=== PATIENT | male | born 1990 | race Caucasian/White ===

== ENCOUNTER 2021-01-08 19:25 | Emergency (ER) | payer MEDICARE, MEDICAID, SELFPAY ==
[2021-01-08 19:32] VITALS: BP 128/80; PULSE 101; RESP 18; TEMP 37; O2SAT 99; BMI 21.9
--- NOTE | 2021-01-08 19:39 | ED.OVERDOSE ---
HPI - Overdose General Chief Complaint: ETOH/Substance Use Stated Complaint: OD Time Seen by Provider: 01/08/21 19:38 Source: patient and EMS Mode of arrival: EMS Limitations: no limitations History of Present Illness HPI Narrative: 30-year-old male who fell asleep after sniffing a bag of cocaine, patient declined use of opiate or heroin, patient stated he was tired and he fell asleep after used cocaine, patient require no Narcan, patient only required chest rub to wake up. Patient emergency department is awake, alert, oriented, patient declined using any other substance no alcohol or heroin. Related Data Allergies Allergy/AdvReac Type Severity Reaction Status Date / Time cat dander [CATS] Allergy Unknown SNEEZING, Unverified 06/19/20 16:00 DIFFICULTY BREATHING Penicillins [PENICILLINS] Allergy Unknown RASH Unverified 06/19/20 16:00 Review of Systems Review of Systems: All other systems are reviewed and are negative Constitutional: Reports as per HPI and Reports no additional constitutional complaints Eyes: Reports as per HPI and Reports no additional eye complaints Reports system reviewed and no additional complaints, except as documented Cardiovascular: Reports as per HPI and Reports no additional cardiovascular complaints Respiratory: Reports as per HPI and Reports no additional respiratory complaints Gastrointestinal: Reports as per HPI and Reports no additional gastrointestinal complaints Genitourinary: Reports no additional female genitourinary complaints Musculoskeletal: Reports no additional musculoskeletal complaints Skin/Breast: Reports system reviewed and no additional complaints, except as docu Psychiatric: Reports no additional psychiatric complaints Endocrine: Reports no additional endocrine complaints Hematologic/Lymphatic: Reports no additional hematologic/lymphatic complaints Allergic/Immunologic: Reports no additional allergic/immunologic complaints Reports system reviewed and no additional complaints, except as documented and Reports Abnormal speech present COUNT INCLUDES THE [facility] Past Medical History Medical History (Updated 01/08/21 @ 19:50 by Jana Arnett) No known health problems Substance abuse Social History Social History Smoking Status: Current every day smoker Use of substances other than those prescribed or required for medical reasons: Yes Substance Use Type: Crack/Cocaine, Marijuana and Prescription Drugs Substance Use Frequency: Chronic Longstanding Last Used Substance: Just Prior to Admission Advance Directives: No Physical Exam Vital Signs: Vital Signs: Last Vital Signs Temp 98.6 F 01/08/21 19:32 Pulse 101 H 01/08/21 19:32 Resp 18 01/08/21 19:32 BP 128/80 01/08/21 19:32 Pulse Ox 99 01/08/21 19:32 Body Mass Index 21.9 Vital signs have been reviewed as appeared to be correct. Blood pressure normal. Heart rate normal. Respiration rate normal. Temperature normal. Oxygen saturation normal. Appearance: Alert. Oriented X3. No acute distress. Head: Normal external exam. Normocephalic. Atraumatic. No Snyder signs noted. No raccoon eyes noted Eyes: PERRLA. EOMI. Conjunctiva and sclera normal. Eyelids normal. ENT: TM's Normal. Pharynx normal. Uvula midline. Moist mucous membranes. No trismus noted. No drooling noted. No muffled voice noted. Neck: Normal inspection. Neck supple. FROM. No adenopathy. Thyroid Normal. No meningeal signs. No neck mass noted. CVS: Normal heart rate and rhythm. Heart sound normal. No murmurs noted. Pulses normal throughout. Respiratory: No respiratory distress. Painless inspiration. Breath sounds normal. No wheezes/rales/rhonchi noted. Chest nontender. No accessory muscle usage noted or decreased air movement noted. Abdomen: Soft and nontender. Bowel sounds normal in all 4 quadrants. No distention noted. No organomegaly noted. No visible injury noted. Back: No CVA tenderness. Full range of motion noted. Skin: Skin warm and dry. Normal skin color. Normal skin turgor. No rashes/lesions/lacerations noted. Extremities: No lower extremity edema. Extremities exhibit normal range of motion. Extremities nontender. Neuro: Oriented X 3. No motor deficit. No sensory deficit. Reflexes normal. Course Course Course Narrative: 30-year-old male came in after using heroin. Patient remain emergency department for over an hour patient remained awake with stable vital signs. Patient is awake and stable enough to be discharged home now. Discharge Plan Discharge Clinical Impression: Polysubstance abuse Patient Disposition: Home, Self-Care Instructions: Polysubstance Abuse (ED) Additional Instructions: Follow-up with your primary doctor.
--- NOTE | 2021-01-08 20:42 | MHC.RECOVSUP ---
Reason for consult o Current location: ETOH/Substance use o Identified substance use concern: methadone/ETOH - Overdose <del>-</del> <del>Withdrawal</del> <del>-</del> <del>Seeking</del> <del>ATS</del> <del>(detox)</del> - Support ? Intervention: <del>o</del> <del>ATS</del> <del>bed</del> <del>search</del> <del>started/completed/in</del> <del>process</del> <del>o</del> <del>MAT</del> <del>started</del> <del>or</del> <del>to</del> <del>be</del> <del>started</del> <del>o</del> <del>Community</del> <del>resources</del> <del>provided</del> o Harm reduction discussion ? Plan: <del>o</del> <del>Referral</del> <del>to</del> <del>[facility]</del> <del>o</del> <del>Bed</del> <del>search</del> <del>in</del> <del>progress</del> <del>to</del> <del>o</del> <del>Follow</del> <del>up</del> <del>tomorrow</del> <del>o</del> <del>Patient</del> <del>awaiting</del> <del>crisis</del> <del>evaluation</del> o Patient to follow up with [facility] after discharge ? Additional information: pt just requested that he wants sleep. attempted to talk with client twice but couldn't gather information
== END 2021-01-08 23:11 | disposition home or self-care (01) ==
LOC: HO.ED 20:23
PROVIDERS: Emergency Provider Emergency Medicine
DX: F19.10 Other psychoactive substance abuse, uncomplicated (principal); F17.200 Nicotine dependence, unspecified, uncomplicated; F12.90 Cannabis use, unspecified, uncomplicated
CPT/HCPCS: 99284

== ENCOUNTER 2024-04-21 06:47 | Emergency (ER) | payer MEDICARE, MEDICAID, SELFPAY ==
--- NOTE | 2024-04-21 | ECG_ITS ---
Test Reason : SOB Blood Pressure : / mmHG Vent. Rate : 092 BPM Atrial Rate : 092 BPM P-R Int : 138 ms QRS Dur : 068 ms QT Int : 532 ms P-R-T Axes : 007 022 006 degrees QTc Int : 657 ms Sinus rhythm with Premature supraventricular complexes and with frequent Premature ventricular complexes Nonspecific ST abnormality Prolonged QT Abnormal ECG No previous ECGs available Referred By: Generic ED Physician Electronically Signed By:TL FARLEY MD
[2024-04-21 07:12] VITALS: BP 121/82; BP 142/55; PULSE 104; PULSE 93; RESP 12; TEMP 36.4; O2SAT 100; O2SAT 98; BMI 20.8
--- NOTE | 2024-04-21 07:14 | ED.SOB ---
HPI - SOB/Dyspnea General Chief Complaint: General Medical Stated Complaint: SOB/WEAKNESS/NAUSEA VOMITING Time Seen by Provider: 04/21/24 07:07 Source: patient and EMS Mode of arrival: EMS Limitations: no limitations History of Present Illness ED Provider: DR. Wilson HPI Narrative: 34-year-old male with known history of polysubstance abuse patient currently admitted to only drinking beer daily, daily smoking marijuana, and taking his prescribed methadone, patient trying to cut down on alcohol drinking by cold turkey started to have epigastric pain yesterday followed by nausea and vomiting stated that the abdominal pain has resolved today. Patient also is complaining of 2 days of shortness of breath, coughing with clear phlegm, no sick contacts, no recent travel, no lower extremity swelling or tenderness, no CP, no history of pulmonary embolism. Patient now complains of no CP, no abdominal pain. Patient feels dehydrated. Related Data Previous Rx's ?Medication ?Instructions ?Recorded albuterol sulfate 90 mcg/actuation 1 inh inhalation QID PRN shortness 04/21/24 aerosol inhaler of breath or wheezing #8.5 grams omeprazole 40 mg capsule,delayed 40 mg PO DAILY #14 caps 04/21/24 release prednisone 20 mg tablet 20 mg PO BID #10 tabs 04/21/24 Allergies Allergy/AdvReac Type Severity Reaction Status Date / Time cat dander [CATS] Allergy Unknown SNEEZING, Verified 04/21/24 07:14 DIFFICULTY BREATHING Penicillins [PENICILLINS] Allergy Unknown RASH Verified 04/21/24 07:14 Review of Systems Review of Systems: All other systems are reviewed and are negative Constitutional: Reports as per HPI and Reports no additional constitutional complaints Eyes: Reports as per HPI and Reports no additional eye complaints Reports system reviewed and no additional complaints, except as documented Cardiovascular: Reports as per HPI and Reports no additional cardiovascular complaints Respiratory: Reports as per HPI and Reports no additional respiratory complaints Gastrointestinal: Reports as per HPI and Reports no additional gastrointestinal complaints Genitourinary: Reports no additional female genitourinary complaints Musculoskeletal: Reports no additional musculoskeletal complaints Skin/Breast: Reports system reviewed and no additional complaints, except as docu Psychiatric: Reports no additional psychiatric complaints Endocrine: Reports no additional endocrine complaints Hematologic/Lymphatic: Reports no additional hematologic/lymphatic complaints Allergic/Immunologic: Reports no additional allergic/immunologic complaints Reports system reviewed and no additional complaints, except as documented and Reports Abnormal speech present PMFSH Past Medical History Medical History Substance abuse No known health problems Social History Social History Alcohol intake: current Alcohol intake frequency: 0-2 drinks per day Alcohol type: beer Smoked in Last 30 Days: No Use of substances other than those prescribed or required for medical reasons: Yes Substance Use Type: Other Substance Use Type Other:: methadone Advance Directives: No Advance Directives Information Provided: No Do you have a plan to hurt others: No Plan Physical Exam Vital Signs: Vital Signs: Last Vital Signs Temp 98.1 F 04/21/24 10:58 Pulse 89 04/21/24 10:58 Resp 14 04/21/24 10:58 BP 114/73 04/21/24 10:58 Pulse Ox 95 04/21/24 10:58 O2 Del Method Room Air 04/21/24 10:58 BMI result Body Mass Index 20.8 Vital signs have been reviewed and appear to be correct. Blood pressure elevated. Heart rate normal. Respiratory rate normal. Temperature normal. Oxygen saturation normal. Appearance: Alert. Oriented X3. No acute distress. Head: Normal external exam. Normocephalic. Atraumatic. No Snyder signs noted. No raccoon eyes noted Eyes: PERRLA. EOMI. Conjunctiva and sclera normal. Eyelids normal. ENT: TM's Normal. Pharynx normal. Uvula midline. Moist mucous membranes. No trismus noted. No drooling noted. No muffled voice noted. Neck: Normal inspection. Neck supple. FROM. No adenopathy. Thyroid Normal. No meningeal signs. No neck mass noted. CVS: Normal heart rate and rhythm. Heart sound normal. No murmurs noted. Pulses normal throughout. Respiratory: No respiratory distress. Painless inspiration. Diffuse expiratory wheezing with prolonged expiration, decreased breathing sounds bilaterally. Abdomen: Soft and nontender. Bowel sounds normal in all 4 quadrants. No distention noted. No organomegaly noted. No visible injury noted. Back: No CVA tenderness. Full range of motion noted. Skin: Skin warm and dry. Normal skin color. Normal skin turgor. No rashes/lesions/lacerations noted. Extremities: No lower extremity edema. Extremities exhibit normal range of motion. Extremities nontender. Neuro: Oriented X 3. Cranial nerve exam: II-XII are grossly intact No motor deficit. No sensory deficit. Reflexes normal. Course Reevaluation(s) Reevaluation #1: 34-year-old male came in after having multiple vomiting after drinking beer and smoking marijuana. 1. Shortness of breath improved with bronchodilator, O2 sat and respiratory rate, no risk for pulmonary embolism with negative D-dimer. Will discharge the patient on albuterol and short course of prednisone. 2. Hypokalemia that was repleted in ED and repeat potassium is within normal. 3. Dehydration due to vomiting patient received 2 L of IV fluids in the emergency department and already feels better. 4. EKG showed prolongation of QT( patient is on methadone). Magnesium is normal and repeat K is normal , no addiction medicine consultation available on the week and, the case was discussed with Lauren Yanez who advised to recommend have of the dose of methadone and follow-up with the clinic tomorrow. patient Understood my instructions and will work with the methadone clinic to taper the methadone. Time: 11:12 Medications Administered Discontinued Medications Generic Name Dose Route Start Last Admin Trade Name Freq PRN Reason Stop Dose Admin Al Hydroxide/Mg Hydroxide 30 ml 04/21/24 07:14 04/21/24 07:36 Magnesium Hydrox/Alum Hydrox 30 Ml Oral.Susp PO 04/21/24 07:15 30 ml ONCE ONE Administration Albuterol/Ipratropium 3 ml 04/21/24 07:26 04/21/24 07:33 Albuterol/Iprat 2.5/0.5mg 3 Ml Ampul.Neb INHALE 04/21/24 07:27 3 ml ONCE ONE Administration Famotidine 20 mg 04/21/24 07:14 04/21/24 07:36 Famotidine/Pf 20 Mg/2 Ml Vial IVPUSH 04/21/24 07:15 20 mg ONCE ONE Administration Sodium Chloride 1,000 mls @ 999 mls/hr 04/21/24 07:14 04/21/24 09:20 Ns IV 04/21/24 08:14 Infused .Q1H1M ONE Infusion Potassium Chloride 10 meq in 100 mls @ 100 mls/hr 04/21/24 08:19 04/21/24 10:26 Potassium Chloride/H20 IV 04/21/24 09:18 Infused ONCE ONE Infusion Sodium Chloride 1,000 mls @ 999 mls/hr 04/21/24 08:30 04/21/24 10:34 Ns IVCONT 04/21/24 10:30 Infused .Q1H1M MANE Infusion Methylprednisolone Sodium Succinate 125 mg 04/21/24 07:16 04/21/24 07:35 Methylprednisolone Sod Succ 125 Mg/2 Ml Vial IVPUSH 04/21/24 07:17 125 mg ONCE ONE Administration Ondansetron HCl 4 mg 04/21/24 07:14 04/21/24 07:35 Ondansetron Hcl 4 Mg/2 Ml Vial IVPUSH 04/21/24 07:15 4 mg ONCE ONE Administration Potassium Chloride 40 meq 04/21/24 08:19 04/21/24 09:11 Potassium Chloride Packet 20 Meq Packet PO 04/21/24 08:20 40 meq ONCE ONE Administration Medical Decision Making Differential Diagnosis Differential Diagnoses: The differential diagnosis associated with the presentation includes ( Asthma exacerbation, acute bronchitis, pulmonary embolism, ACS, alcoholic gastritis, dehydration, electrolyte derangement, dehydration, PEPE , upper respiratory viral infection.) Admission/Observation Consideration of admission/observation: Escalation of care including admission/observation considered Lab Data MDM Lab Attestation statement: I reviewed the patient's lab results. 04/21/24 07:07 04/21/24 10:32 Labs: Lab Results 04/21/24 04/21/24 04/21/24 Range/Units 07:07 07:34 10:32 WBC 8.1 (4.8-10.8) X10*3/uL RBC 3.30 L (4.60-5.80) X10*6/uL Hgb 11.2 L (14.0-18.0) g/dl Hct 33.5 L (42.0-52.0) % MCV 101.5 H (80.0-98.0) fL MCH 33.9 H (27.0-33.0) pg MCHC 33.4 (31.0-36.0) g/dl RDW 11.6 (11.0-16.0) % Plt Count 208 (160-400) X10*3/uL MPV 11.0 (9.4-12.4) fL Immature Gran % (Auto) 0.5 H (0.0-0.4) % Neut % (Auto) 64.5 (45-73) % Lymph % (Auto) 24.1 (20-40) % [place] % (Auto) 9.7 (2-11) % Eos % (Auto) 0.7 (0-4) % Baso % (Auto) 0.5 (0-2) % Lymph # (Auto) 2.0 (1.2-4.9) X10*3/uL [place] # (Auto) 0.8 (0.1-1.2) X10*3/uL Eos # (Auto) 0.1 (0.0-0.4) X10*3/uL Baso # (Auto) 0.0 (0.0-0.2) X10*3/uL Abs Immat Gran (auto) 0.04 H (0.00-0.03) X10*3/uL Absolute Neuts (auto) 5.2 (2.0-8.3) x10*3/uL Absolute Nucleated RBC 0.000 (0.0-0.012) X10*3/uL Nucleated RBC % (auto) 0.0 (0.0-0.2) /100WBC D-Dimer High Sensitivty < 150 NG/ML Sodium 131 L 139 (135-145) mmol/L Potassium 3.2 L 4.8 D (3.3-5.1) mmol/L Chloride 91 L 106 (96-108) mmol/L Carbon Dioxide 27 25 (22-29) mmol/L Anion Gap 16 13 (12-20) BUN 4 L 4 L (9-16) mg/dL Creatinine 0.96 0.87 (0.5-1.4) mg/dL Estim Creat Clear Calc 89.8 99.1 Estimated GFR > 60 > 60 Random Glucose 93 108 (60-115) mg/dL Calcium 9.4 8.5 D (8.4-10.2) mg/dL Magnesium 1.7 (1.6-2.6) mg/dL Total Bilirubin 1.3 H (0.0-1.0) mg/dL AST 36 (5-37) U/L ALT 45 H (0-40) U/L Alkaline Phosphatase 123 H (39-117) U/L Troponin I High Sens < 2.7 < 2.7 (<3.5-35.0) ng/L Total Protein 7.0 (6.5-8.0) g/dL Albumin 4.1 (3.5-5.0) g/dL Influenza Type A (PCR) NEGATIVE (Negative) Influenza Type B (PCR) NEGATIVE (Negative) RSV RNA Qual (PCR) NEGATIVE (Negative) SARS-CoV-2 RNA (RT-PCR) NEGATIVE (Negative) Discharge Plan Discharge Clinical Impression: Acute hypokalemia, Acute dehydration, Alcoholic gastritis, Prolonged Q-T interval on ECG, Acute bronchitis Patient Disposition: Home, Self-Care Instructions: Gastritis (ED), Dehydration (ED), Acute Bronchitis (ED) Additional Instructions: we found abnormalities on your EKG likely to be secondary to using a methadone, follow-up with your methadone clinic and let them know, I recommend to start on half of the dose that you take currently (60 mg instead of 120 mg ). Prescriptions: New prednisone 20 mg tablet 20 mg PO BID Qty: 10 0RF albuterol sulfate 90 mcg/actuation HFA aerosol inhaler 1 inh inhalation QID PRN (Reason: shortness of breath or wheezing) Qty: 8.5 0RF omeprazole 40 mg capsule,delayed release(DR/EC) 40 mg PO DAILY Qty: 14 0RF Referrals: [facility] [Primary Care Provider] - Print Language: Occitan
[2024-04-21 07:15] LABS: Basophils Percent Auto 0.5 % (0-2); Eosinophils Absolute Auto 0.1 X10*3/uL (0.0-0.4); Eosinophils Percent Auto 0.7 % (0-4); Hematocrit 33.5 % (42.0-52.0); Imm Gran Abs Auto 0.04 X10*3/uL (0.00-0.03); Imm Gran Pct Auto 0.5 % (0.0-0.4); Lymphocytes Percent Auto 24.1 % (20-40); Mean Corpuscular Volume 101.5 fL (80.0-98.0); Monocytes Absolute Auto 0.8 X10*3/uL (0.1-1.2); Monocytes Percent Auto 9.7 % (2-11); Neutrophils Absolute Auto 5.2 x10*3/uL (2.0-8.3); Neutrophils Percent Auto 64.5 % (45-73); Platelet Count 208 X10*3/uL (160-400); Red Cell Distribution Width 11.6 % (11.0-16.0); White Blood Count 8.1 X10*3/uL (4.8-10.8)
--- NOTE | 2024-04-21 07:17 | PC.NURSE ---
patient arrives from EMS from home with cc of shortness of breath and nausea and vomiting for the last 2 days, patient states he was throwing up all day yesterday, states he has a hx of asthma and this is what it felt like the last time he had an asthma attack. patient saturating well on Room Air, O2 saturation 98-100%, respirations even and unlabored, patient speaking in clear and complete sentences. patient lung sounds clear to auscultation bilaterally. patient placed on monitor tech, Sinus rhythm with PVCs noted. MD at bedside to Evaluate, patient Vital signs stable, EKG completed by this RN, blood work obtained. PIV placed by EMS. nasal swab completed
[2024-04-21 07:33] LABS: Alanine Aminotransferase 45 U/L (0-40); Albumin Level 4.1 g/dL (3.5-5.0); Alkaline Phosphatase 123 U/L (39-117); Anion Gap 16 (12-20); Aspartate Amino Transferase 36 U/L (5-37); Bilirubin Total 1.3 mg/dL (0.0-1.0); Blood Urea Nitrogen 4 mg/dL (9-16); Calcium 9.4 mg/dL (8.4-10.2); Carbon Dioxide 27 mmol/L (22-29); Chloride 91 mmol/L (96-108); Creatinine Clr Calc Pharmacy 89.8; Estimated Glomerular Filt Rate > 60; Glucose Random 93 mg/dL (60-115); Magnesium 1.7 mg/dL (1.6-2.6); Potassium 3.2 mmol/L (3.3-5.1); Sodium 131 mmol/L (135-145)
[2024-04-21] MEDS: Albuterol/Iprat 2.5/0.5MG 3 ML AMPUL.NEB INHALE (07:33)
[2024-04-21 07:34] VITALS: PULSE 101; RESP 14; O2SAT 97
[2024-04-21 07:35] VITALS: BP 121/87; PULSE 98; RESP 12; O2SAT 98
[2024-04-21] MEDS: methylPREDNISolone Sod Succ 125 MG/2 ML VIAL IVPUSH (07:35)
[2024-04-21] MEDS: ondansetron HCL 4 MG/2 ML VIAL IVPUSH (07:35)
[2024-04-21] MEDS: Famotidine/PF 20 MG/2 ML VIAL IVPUSH (07:36)
[2024-04-21] MEDS: Magnesium Hydrox/Alum Hydrox 30 ML ORAL.SUSP PO (07:36)
[2024-04-21] MEDS: 0.9 % Sodium Chloride 1,000 ML 999 ML IV (07:37)
[2024-04-21 07:41] LABS: Troponin-I High Sensitivity < 2.7 ng/L (<3.5-35.0)
[2024-04-21 07:43] LABS: Hemoglobin 11.2 g/dl (14.0-18.0)
--- NOTE | 2024-04-21 07:43 | PC.NURSE ---
patient medicated per going by respiratory. offering no complaints at this time
[2024-04-21 07:44] LABS: Mean Corpuscular HGB Conc 33.4 g/dl (31.0-36.0); Mean Corpuscular Hemoglobin 33.9 pg (27.0-33.0)
[2024-04-21 07:55] LABS: Influenza A PCR NEGATIVE (Negative); Influenza B PCR NEGATIVE (Negative); Resp Syncy Virus RNA Qual PCR NEGATIVE (Negative); SARS COV2 PCR INHOUSE NEGATIVE (Negative)
[2024-04-21 08:02] LABS: D Dimer High Sensitivity < 150 NG/ML
[2024-04-21] MEDS: Potassium Chloride Packet 20 MEQ PACKET 40 MEQ PO (09:11)
[2024-04-21] MEDS: Potassium Chloride/H20 10 MEQ/100 ML PIGGYBACK 100 MEQ IV (09:13)
[2024-04-21] MEDS: 0.9 % Sodium Chloride 1,000 ML 999 ML IVCONT ×2 (09:14→09:25)
--- NOTE | 2024-04-21 09:36 | ECG_ITS ---
Test Reason : ABNORMAL QTC Blood Pressure : / mmHG Vent. Rate : 087 BPM Atrial Rate : 087 BPM P-R Int : 128 ms QRS Dur : 070 ms QT Int : 504 ms P-R-T Axes : 032 039 039 degrees QTc Int : 606 ms Normal sinus rhythm Septal infarct , age undetermined Abnormal ECG When compared with ECG of 21-APR-2024 06:59, Premature ventricular complexes are no longer Present Premature supraventricular complexes are no longer Present T wave inversion now evident in Anterior leads QT has shortened Referred By: Edgardo Wilson Electronically Signed By:TL FARLEY MD
[2024-04-21 10:58] VITALS: BP 114/73; PULSE 89; RESP 14; TEMP 36.7; O2SAT 95
[2024-04-21 11:03] LABS: Anion Gap 13 (12-20); Blood Urea Nitrogen 4 mg/dL (9-16); Calcium 8.5 mg/dL (8.4-10.2); Carbon Dioxide 25 mmol/L (22-29); Chloride 106 mmol/L (96-108); Creatinine Clr Calc Pharmacy 99.1; Estimated Glomerular Filt Rate > 60; Glucose Random 108 mg/dL (60-115); Potassium 4.8 mmol/L (3.3-5.1); Sodium 139 mmol/L (135-145)
--- NOTE | 2024-04-21 11:12 | MHC.EDTECH ---
Per KRYSTAL Sharma, EKG ordered not to be performed until 1200.
[2024-04-21 11:40] LABS: Troponin-I High Sensitivity < 2.7 ng/L (<3.5-35.0)
--- NOTE | 2024-04-21 12:00 | ECG_ITS ---
Test Reason : SOB Blood Pressure : / mmHG Vent. Rate : 071 BPM Atrial Rate : 071 BPM P-R Int : 134 ms QRS Dur : 066 ms QT Int : 606 ms P-R-T Axes : 033 038 017 degrees QTc Int : 658 ms Normal sinus rhythm Nonspecific ST and T wave abnormality Abnormal ECG When compared with ECG of 21-APR-2024 09:47, Nonspecific T wave abnormality has replaced inverted T waves in Anterior leads QT has lengthened Referred By: Edgardo Wilson Electronically Signed By:TL FARLEY MD
[2024-04-21 13:00] VITALS: BP 110/76; PULSE 80; RESP 16; TEMP 36.7; O2SAT 98
[2024-04-21 13:06] VITALS: BP 110/76; PULSE 80; RESP 16; TEMP 36.7; O2SAT 98
== END 2024-04-21 13:07 | disposition home or self-care (01) ==
PROVIDERS: Emergency Provider Emergency Medicine
DX: E87.6 Hypokalemia (principal); E86.0 Dehydration; K29.20 Alcoholic gastritis without bleeding; J20.9 Acute bronchitis, unspecified; R94.31 Abnormal electrocardiogram [ECG] [EKG]; R06.02 Shortness of breath; R05.9 Cough, unspecified; Z03.818 Encounter for observation for suspected exposure to other biological agents ruled out; R10.13 Epigastric pain; F19.10 Other psychoactive substance abuse, uncomplicated; F12.90 Cannabis use, unspecified, uncomplicated; F11.20 Opioid dependence, uncomplicated
CPT/HCPCS: 0241U; 36415; 80048; 80053; 83735; 84484; 85025; 85379; 93005; 94640; 96361; 96365; 96375; 99285; J2405; J2919; J3480

== ENCOUNTER → 2024-04-21 06:59 | Outpatient (BNV) | payer MEDICARE, MEDICAID, SELFPAY | PROVIDERS: Emergency Provider Emergency Medicine; Visit Provider Internal Medicine Cardiovascular Disease | DX: R94.31 Abnormal electrocardiogram [ECG] [EKG] (principal) | CPT/HCPCS: 93010 ==

== ENCOUNTER 2024-05-21 22:22 | Emergency (ER) | payer MEDICARE, MEDICAID, SELFPAY ==
[2024-05-21 23:00] VITALS: BP 125/93; PULSE 82; RESP 16; TEMP 36.3; O2SAT 99; BMI 23.8
[2024-05-21] MEDS: Ondansetron ODT 4 MG TAB.RAPDIS TRANSLINGU (23:18)
== END 2024-05-22 02:59 | disposition left against medical advice (07) ==
PROVIDERS: Emergency Provider Emergency Medicine
DX: R53.1 Weakness (principal)
CPT/HCPCS: 99281

== ENCOUNTER 2024-11-15 08:37 | Emergency (ER) | payer MEDICARE, MEDICAID, SELFPAY ==
[2024-11-15 08:54] VITALS: BP 120/76; PULSE 93; RESP 18; TEMP 36.7; O2SAT 98; BMI 21.4
--- NOTE | 2024-11-15 10:02 | PC.NURSE ---
Methadone verification form faxed to pharmacy.
--- NOTE | 2024-11-15 11:28 | ED.GENADULT ---
HPI - General Adult General Chief complaint: General Medical Stated complaint: Methadone dose Time Seen by Provider: 11/15/24 11:27 Source: patient, RN notes reviewed and old records reviewed Mode of arrival: ambulatory Limitations: no limitations History of Present Illness ED Provider: Abdirahman [facility] narrative: Patient is a 34-year-old male presenting to the ED requesting his methadone dose of 120mg. States he typically gets take home bottles, however, [facility] clinic closed today due to inclement weather. Denies any other complaints. MD complaint: methadone dependence Treatments prior to arrival: none Related Data Home Medications ?Medication ?Instructions ?Recorded ?Confirmed methadone 10 mg/mL oral concentrate 120 mg PO DAILY 11/15/24 11/15/24 Previous Rx's ?Medication ?Instructions ?Recorded albuterol sulfate 90 mcg/actuation 1 inh inhalation QID PRN shortness 04/21/24 aerosol inhaler of breath or wheezing #8.5 grams omeprazole 40 mg capsule,delayed 40 mg PO DAILY #14 caps 04/21/24 release prednisone 20 mg tablet 20 mg PO BID #10 tabs 04/21/24 Allergies Allergy/AdvReac Type Severity Reaction Status Date / Time cat dander [CATS] Allergy Unknown SNEEZING, Verified 11/15/24 08:57 DIFFICULTY BREATHING Penicillins [PENICILLINS] Allergy Unknown RASH Verified 11/15/24 08:57 Review of Systems Review of Systems: As per HPI Yes all other systems are reviewed and are negative Constitutional: Constitutional: Reports as per HPI [facility] Past Medical History Medical History Substance abuse No known health problems Social History Social History Alcohol intake: current Alcohol intake frequency: 0-2 drinks per day Alcohol type: beer Substance Use Type: Other Advance Directives: No Advance Directives Information Provided: No Do you have a plan to hurt others: No Plan Physical Exam ED Vital Signs: Vital Signs - 24 hr 11/15/24 08:54 Temperature 98.1 F Pulse Rate 93 Respiratory Rate 18 Blood Pressure 120/76 Pulse Oximetry 98 Oxygen Delivery Method Room Air BMI result Body Mass Index 21.4 Vital signs have been reviewed and appear to be correct. Blood pressure normal. Heart rate normal. Respiratory rate normal. Temperature normal. Oxygen saturation normal. Const General: cooperative, healthy appearing and no acute distress Orientation/consciousness: oriented to person, oriented to place, oriented to time and patient oriented x3 Limitations: no limitations HENMT Head: Yes normocephalic and Yes atraumatic Ears: external ears normal General nose exam: Normal external nose present Face and sinus: Yes face symmetric Mouth: oropharynx normal and moist mucous membranes Throat: Yes uvula midline Eyes Pupils: Equal, round and reactive pupils present Neck Neck: Yes normal visual inspection and Yes supple Resp Effort & Inspection: normal respiratory effort and able to speak in complete sentences Auscultation: clear to auscultation bilaterally Cardio Rate: regular rate Rhythm: regular rhythm Heart sounds: S1 normal heart sound present and S2 normal heart sound present GI Palpation (GI): Soft to palpation and nontender Auscultation: normoactive bowel sounds General: Yes no CVA tenderness Back/Spine/Pelvis Back: no CVA tenderness Skin General skin exam: elasticity normal and turgor normal Neuro General: oriented to person, oriented to place, oriented to time, patient oriented x3, moves all extremities, no focal motor deficits and CN's II-XI intact bilaterally Cranial nerves: Yes Equal, round and reactive pupils present Cognition (Neuro): normal cognition Extrem General: Yes full ROM, Yes no pedal edema and Yes no calf tenderness Psych Mental Status: mental status grossly normal Affect: normal affect Thought process: Normal thought process present Medications Administered Discontinued Medications Generic Name Dose Route Start Last Admin Trade Name Freq PRN Reason Stop Dose Admin Methadone HCl 120 mg 11/15/24 11:14 11/15/24 12:09 Methadone Hcl 20 Mg/2 Ml Oral.Conc PO 11/15/24 11:15 120 mg ONCE ONE Administration Medical Decision Making Medical Decision Making [facility] Narrative: Patient is a 34-year-old male presenting to the ED requesting his methadone dose of 120mg. On exam patient is awake, A+Ox3, VS WNL, afebrile, normal neurological exam without focal deficits, physical exam findings as above. Given reported symptoms and physical exam findings, initial differential includes but is not limited to methadone dependence. Dose verified with clinic by RN, patient medicated in the ED and provided with last dose letter. Return precautions discussed. Patient verbalized understanding of and agreement with plan. Differential Diagnosis Differential Diagnoses: The differential diagnosis associated with the presentation includes As per MDM External Record Review External record reviewed: Inpatient record, Office record, Outpatient record and Other Discharge Plan Discharge Clinical Impression: Methadone dependence Patient Disposition: Home, Self-Care Additional Instructions: Opiate use disorder You were seen in our Emergency Department today for treatment of opiate use disorder. You may have been dosed with medication for opiate use disorder (MOUD) in the form of suboxone or methadone. You may experience feeling some withdrawal symptoms and this is normal. The? dose in the Emergency Department is a starting dose and meant to be titrated up once you follow up with a clinic. Please do not feel discouraged, it is a process. The nurse has reviewed with you where to follow up and what information to bring with you, to continue treatment. You also may have been given naloxone (narcan) to take home with you. This medication is used to potentially treat opiate overdose. If you decide you want to stop or cut down on how much you?re using, you can call or walk into our outpatient Addiction Treatment office: [facility] (M-F 9am-5p) [address] [place] [address], [address] [phone] You may have been provided with safer injection?items, please take time to take care of YOU and your health. Use new supplies whenever possible to lessen the chances of infections and other illnesses.? ?If you need more supplies, please go [facility],? [address] [place] [address] OR you can call or text to coordinate delivery of safer supplies. You were also provided a list of several treatment providers in the area.? If you experience any worsening symptoms you cannot control please return to the ED or call 911. Please follow up at your next appointment. Things to look out for are fevers, chest pain, shortness of breath, severe pain, dizziness, fainting or any other concerns. Prescriptions: No Action prednisone 20 mg tablet 20 mg PO BID Qty: 10 0RF albuterol sulfate 90 mcg/actuation HFA aerosol inhaler 1 inh inhalation QID PRN (Reason: shortness of breath or wheezing) Qty: 8.5 0RF omeprazole 40 mg capsule,delayed release(DR/EC) 40 mg PO DAILY Qty: 14 0RF methadone 10 mg/mL Concentrate 120 mg PO DAILY Print Language: Niuean
--- NOTE | 2024-11-15 11:31 | HE.PHANOTE ---
METHADONE Dose: 120mg, last dosed 11/01/24 with 13 take home bottles - should last to 11/14/24, per K[facility] at [facility], [place]nam[facility].
[2024-11-15] MEDS: methADONE HCl 20 MG/2 ML ORAL.CONC 120 MG PO (12:09)
[2024-11-15 12:25] VITALS: BP 120/76; PULSE 93; RESP 18; TEMP 36.7; O2SAT 98
--- OUTSIDE RECORDS SUMMARY | 2024-11-15 12:28 | XMS_ITS | Clinical Summary ---
Author Organization [employer] Address [address] [place] [address] Care Team Providers [employer] Worker Name Role Phone Unavailable Primary Care Provider Unavailabl e Active Problems Problem Noted Date Diagnosed Date Abnormal findings on diagnostic imaging of lung 06/01/2021 Mild intermittent asthma 06/01/2021 Opioid abuse 06/01/2021 Posttraumatic stress disorder 06/01/2021 Social History Tobacco Use Types Packs/Day Years Used Date Smoking Tobacco: Never Assessed Sex and Gender Information Value Date Recorded Sex Assigned at Male 08/02/2022 10:15 AM EDT Legal Sex Male 10:15 AM EDT Gender Identity Male 08/02/2022 10:15 AM EDT Sexual Orientation Straight 08/02/2022 10 :15 AM EDT Last Filed Vital Signs Vital Sign Reading Time Taken Comments Blood Pressure 100/60 06/01/2021 12:08 AM EDT Pulse 72 06/01/2021 12:08 AM EDT Temperature - - Respiratory Rate - - Oxygen Saturation - - Inhaled Oxygen Concentration - - Weight 56.7 kg (125 lb) 06/01/2021 12:08 AM EDT Height 162.6 cm (5' 4 ) 06/01/2021 12:08 AM EDT Body Mass Index 21.46 06/01/2021 12:08 AM EDT Plan of Treatment Health Maintenance Due Date Last Done Comments Depression Screening 1990 HIV Screening 1990 SDOH Screening 1990 Alcohol/Substance Use Screening 2002 Tobacco Screening 2002 Family Planning (PISQ) 2005 Hepatitis C Screening 2008 DTaP/Tdap/Td Vaccines (1 - Tdap) 2009 Hepatitis A Vaccines (1 of 2 - Risk 2-dose series) 2009 Hepatitis B Vaccines (1 of 3 - 19+ 3-dose series) 2009 Pneumococcal Vaccine: Pediat rics (0 to 5 Years) and At-Risk Patients (6 to 49) Years) (1 of 2 - PCV) 2009 COVID-19 Vaccine ( - 2023-2 5 season) 2024 Influenza Vaccine (#1) 2024 Zoster Vaccines (1 of 2) 2040 RSV Patients and Pa tients Aged 60 years or older (1 - 1-dose 75+ series) 2065 HIB Vaccines Aged Out No longer eligi ble based on patient's age to complete this topic HPV Vaccines Aged Out No longer eligi ble based on patient's age to complete this topic IPV Vaccines Aged Out No longer eligi ble based on patient's age to complete this topic Meningococcal Vaccine Aged Out No yolanda jodee eligible based on patient's age to complete this topic RSV under 20 months Aged Out No longe r eligible based on patient's age to complete this topic Rotavirus Vaccines Aged Out No longer eligible based on patient's age to complete this topic [place] [address] [place] [address] STANDARD
== END 2024-11-15 12:26 | disposition home or self-care (01) ==
PROVIDERS: Emergency Provider Emergency Medicine Emergency Medical Services
DX: F11.20 Opioid dependence, uncomplicated (principal); Z79.899 Other long term (current) drug therapy
CPT/HCPCS: 99282; 99283

== ENCOUNTER 2025-04-20 04:05 | Emergency (ER) | payer MEDICARE, MEDICAID, SELFPAY ==
[2025-04-20 04:11] VITALS: BP 134/99; BP 162/80; PULSE 104; PULSE 52; RESP 16; TEMP 36.8; O2SAT 100; O2SAT 98; BMI 22.4
[2025-04-20 04:28] LABS: Hematocrit 36.4 % (42.0-52.0); Hemoglobin 13.1 g/dl (14.0-18.0); Imm Gran Abs Auto 0.01 X10*3/uL (0.00-0.03); Imm Gran Pct Auto 0.1 % (0.0-0.4); Lymphocytes Absolute Auto 3.2 X10*3/uL (1.2-4.9); MANUAL DIFF FLAG NO; Mean Corpuscular HGB Conc 36.0 g/dl (31.0-36.0); Mean Corpuscular Hemoglobin 36.6 pg (27.0-33.0); Mean Corpuscular Volume 101.7 fL (80.0-98.0); NRBC Abs Auto 0.000 X10*3/uL (0.0-0.012); NRBC Pct Auto 0.0 /100WBC (0.0-0.2); Platelet Count 268 X10*3/uL (160-400); Red Blood Count 3.58 X10*6/uL (4.60-5.80); White Blood Count 8.1 X10*3/uL (4.8-10.8)
[2025-04-20 05:02] LABS: Alanine Aminotransferase 76 U/L (0-40); Albumin Level 4.1 g/dL (3.5-5.0); Alkaline Phosphatase 184 U/L (39-117); Anion Gap 12 (12-20); Aspartate Amino Transferase 62 U/L (5-37); Blood Urea Nitrogen 4 mg/dL (9-16); Calcium 8.3 mg/dL (8.4-10.2); Carbon Dioxide 27 mmol/L (22-29); Chloride 100 mmol/L (96-108); Creatinine Clr Calc Pharmacy 124.4; Estimated Glomerular Filt Rate > 60; Lipase 12 U/L (8-78); Potassium 3.7 mmol/L (3.3-5.1); Sodium 135 mmol/L (135-145); Total Protein 6.9 g/dL (6.5-8.0)
[2025-04-20 06:22] VITALS: BP 111/65; PULSE 49; RESP 16; TEMP 36.8; O2SAT 99
--- NOTE | 2025-04-20 07:07 | PC.NURSE ---
Pt stated he wanted to leave before he was able to be evaluated. Pt stated he felt better and his ride was here and needed to get to work. IV removed. Pt educated on why he should get seen but still decided to leave.
== END 2025-04-20 07:10 | disposition left against medical advice (07) ==
PROVIDERS: Emergency Provider Emergency Medicine
DX: R06.02 Shortness of breath (principal); R11.2 Nausea with vomiting, unspecified; Z53.21 Procedure and treatment not carried out due to patient leaving prior to being seen by health care provider
CPT/HCPCS: 36415; 80053; 83690; 85025; 96374; 99281; 99284; J2405